=== PATIENT | female | born 1965 | race Caucasian/White ===

== ENCOUNTER 2017-07-18 03:01 | Emergency (ER) | payer MEDICAID ==
[~2017-07-18] VITALS: Ht 154.9 cm; Wt 69.9 kg
[2017-07-18 03:26] VITALS: BP 158/85
[2017-07-18] MEDS ORDERED: diphenhdrAMINE HCL 50 MG/1 ML VL IM ONE (04:00)
[2017-07-18] MEDS ORDERED: methylPREDNISolone SOD SUCC 125 MG/2 ML VL IM ONE (04:00)
== END 2017-07-18 04:31 | disposition home or self-care (01) ==
LOC: ER 03:01
DX: S60.562A Insect bite (nonvenomous) of left hand, initial encounter (principal); T78.40XA Allergy, unspecified, initial encounter; F17.210 Nicotine dependence, cigarettes, uncomplicated; W57.XXXA Bitten or stung by nonvenomous insect and other nonvenomous arthropods, initial encounter; Y93.89 Activity, other specified; Y99.8 Other external cause status; Y92.89 Other specified places as the place of occurrence of the external cause
CPT/HCPCS: 96372; 99284; J1200; J2930

== ENCOUNTER 2021-04-16 16:42 | Emergency (ER) | payer MEDICAID ==
[~2021-04-16] VITALS: Ht 154.9 cm; Wt 69.9 kg
[2021-04-16 20:19] VITALS: BP 107/62
== END 2021-04-17 00:05 | disposition left against medical advice (07) ==
LOC: ER 16:42
DX: R51.9 Headache, unspecified (principal); Z53.21 Procedure and treatment not carried out due to patient leaving prior to being seen by health care provider
CPT/HCPCS: 70450